=== PATIENT | female | born 1985 | race Caucasian/White ===

== ENCOUNTER 2019-02-15 16:53 | Emergency (ER) | payer BC, OTHER ==
--- NOTE | 2019-02-15 18:32 | EDM.PDOC ---
ED HPI GENERAL MEDICAL PROBLEM - General Chief Complaint: Back Pain or Injury Stated Complaint: LOW BACK PAIN Time Seen by Provider: 02/15/19 18:18 Source of Information: Reports: Patient History Limitations: Reports: No Limitations - History of Present Illness INITIAL COMMENTS - FREE TEXT/NARRATIVE: Patient is a 33-year-old female who presents to the emergency department with lower abdominal tenderness. Patient is 32 weeks and this is her first . Patient states that he feels some crampiness, but denies contractions. Patient also denies vaginal bleeding or fluid, fever, shortness of breath, chest pain, nausea, vomiting, diarrhea. Initially patient did not want to be seen and just wanted heart tones and to see if there is contractions. heart tones were 156 bpm, with no contractions. Patient then asked if Dr. Whittaker would come into the ER to do a ultrasound. Dr. Mick Carter was not available. Patient then requested urinalysis and evaluation in ER. Onset: Gradual Onset Date: 02/14/19 Duration: Day(s): Location: Reports: Abdomen Quality: Reports: Other (Crampy) Improves with: Reports: None Worsens with: Reports: None Context: Denies: Activity, Exercise, Lifting, Trauma Associated Symptoms: Reports: No Other Symptoms. Denies: Chest Pain, Fever/ Chills, Nausea/Vomiting, Shortness of Breath - Related Data Allergies Allergy/AdvReac Type Severity Reaction Status Date / Time No Known Drug Allergies Allergy Cannot Verified 02/15/19 18:03 Remember Home Meds: Home Meds Escitalopram [Lexapro] 10 mg PO DAILY 08/14/17 [History] Levothyroxine Sodium [Synthroid] 75 mcg PO DAILY 08/14/17 [History] Levothyroxine Sodium [Synthroid] 200 mcg PO DAILY 08/14/17 [History] Acetaminophen 500 - 1,000 mg PO Q4H PRN 02/15/19 [History] Acetaminophen/Diphenhydramine [Acetaminophen Pm Caplet] 1 tab PO BEDTIME PRN [History] Aspirin 81 mg PO DAILY 02/15/19 [History] Docusate Sodium [Colace] 300 mg PO DAILY 02/15/19 [History] Labetalol [Normodyne] 200 mg PO BID 02/15/19 [History] PNV95/Ferrous Fumarate/FA [ Tablet] 1 each PO DAILY 02/15/19 [History] Past Medical History HEENT History: Reports: Impaired Vision Cardiovascular History: Reports: Hypertension Gastrointestinal History: Reports: Chronic Constipation [facility] History: Reports: Psychiatric History: Reports: Anxiety Endocrine/Metabolic History: Reports: Obesity/BMI 30+ Dermatologic History: Reports: Other (See Below) Other Dermatologic History: boils - Infectious Disease History Infectious Disease History: Reports: None - Past Surgical History HEENT Surgical History: Reports: Tonsillectomy Cardiovascular Surgical History: Reports: None GI Surgical History: Reports: None Social & Family History - Tobacco Use Smoking Status *Q: Never Smoker - Caffeine Use Caffeine Use: Reports: Coffee Other Caffeine Use: 12 oz per day - Recreational Drug Use Recreational Drug Use: No ED ROS GENERAL - Review of Systems Review Of Systems: ROS reveals no pertinent complaints other than HPI. Constitutional: Reports: No Symptoms HEENT: Reports: No Symptoms Respiratory: Reports: No Symptoms Cardiovascular: Reports: No Symptoms Endocrine: Reports: No Symptoms GI/Abdominal: Reports: Abdominal Pain : Reports: No Symptoms Musculoskeletal: Reports: Back Pain Skin: Reports: No Symptoms Neurological: Reports: No Symptoms Psychiatric: Reports: No Symptoms Hematologic/Lymphatic: Reports: No Symptoms ED EXAM - Physical Exam Exam: See Below Exam Limited By: No Limitations General Appearance: Alert, WD/WN, No Apparent Distress Throat/Mouth: Normal Inspection, Normal Oropharynx, No Airway Compromise Head: Atraumatic, Normocephalic Neck: Normal Inspection Respiratory/Chest: No Respiratory Distress, Lungs Clear, Normal Breath Sounds, No Accessory Muscle Use, Chest Non-Tender Cardiovascular: Regular Rate, Rhythm, No Murmur GI/Abdominal Exam: Normal Bowel Sounds, Soft, Other (Gravidarum Abdomen) Heart Tones: Present Heart Tones per Min: 156 Movement: Active Back Exam: Normal Inspection, Paraspinal Tenderness. No: CVA Tenderness (L), CVA Tenderness (R) Extremities: Normal Inspection, No Pedal Edema Neurological: Alert, Oriented, Normal Cognition Psychiatric: Normal Affect, Normal Mood Skin Exam: Warm, Dry, Intact, Normal Color, No Rash Course - Vital Signs Last Recorded V/S: Last Vital Signs Temp 98.5 F 02/15/19 17:28 Pulse 96 02/15/19 17:28 Resp 20 02/15/19 17:28 BP 146/87 H 02/15/19 17:28 Pulse Ox 98 02/15/19 17:28 - Orders/Labs/Meds Labs: Laboratory Tests 02/15/19 Range/Units 17:30 Specimen Type Urincc Urine Color Yellow (YELLOW) Urine Appearance Clear (CLEAR) Urine pH 6.5 (5.0-9.0) Ur Specific Coyle 1.020 (1.005-1.030) Urine Protein Negative (NEGATIVE) mg/dL Urine Glucose (UA) Negative (NEGATIVE) mg/dL Urine Ketones Negative (NEGATIVE) mg/dL Urine Occult Blood Moderate H (NEGATIVE) Urine Nitrite Negative (NEGATIVE) Urine Bilirubin Negative (NEGATIVE) Urine Urobilinogen 0.2 (0.2-1.0) E.U./dL Ur Leukocyte Esterase Negative (NEGATIVE) Urine RBC 5-10 H (0-5) /HPF Urine WBC 0-5 (0-5) /HPF Ur Epithelial Cells Moderate H /LPF Urine Bacteria Not seen (NONE TO FEW) /HPF - Re-Assessments/Exams Free Text/Narrative Re-Assessment/Exam: 02/15/19 18:32 Patient afebrile, vital signs stable, discomfort resolved. Patient has an appointment with [facility] at on Sunday. Departure - Departure Time of Disposition: 18:33 Disposition: Home, Self-Care 01 Condition: Good Clinical Impression: Qualifiers: Weeks of gestation: 32 weeks Qualified Code(s): Z3A.32 - 32 weeks gestation of Abdominal pain during Qualifiers: Trimester: third trimester Qualified Code(s): O26.893 - Other specified related conditions, third trimester; R10.9 - Unspecified abdominal pain Low back pain during Qualifiers: Trimester: third trimester Qualified Code(s): O26.893 - Other specified related conditions, third trimester; M54.5 - Low back pain - Discharge Information Instructions: Third Trimester of , [id number], Abdominal Pain During , [id number] Referrals: Mary Padron MD [Primary Care Provider] - Forms: ED Department Discharge Additional Instructions: Follow-up at [facility] as scheduled on Sunday. Return to emergency department sooner if symptoms continue or worsen. - Assessment/Plan Assessment:: discomfort Plan: Follow-up with [facility] on Sunday
== END 2019-02-15 18:35 | disposition home or self-care (01) ==
LOC: KA.ED 16:53
DX: O99.89 Other specified diseases and conditions complicating pregnancy, childbirth and the puerperium (principal); M54.5 Low back pain; O10.913 Unspecified pre-existing hypertension complicating pregnancy, third trimester; O99.213 Obesity complicating pregnancy, third trimester; O99.343 Other mental disorders complicating pregnancy, third trimester; F41.9 Anxiety disorder, unspecified; Z79.82 Long term (current) use of aspirin; Z98.890 Other specified postprocedural states; Z79.899 Other long term (current) drug therapy; Z3A.32 32 weeks gestation of pregnancy
CPT/HCPCS: 81001; 99284